=== PATIENT | male | born 1950 | race Two or more races ===

== ENCOUNTER 2019-08-26 16:18 | Emergency (ER) | payer OTHER ==
[~2019-08-26] VITALS: Ht 162.6 cm; Wt 93.9 kg
[2019-08-26] MEDS ORDERED: SYNTHROID88 MCG (16:51)
[2019-08-26] MEDS ORDERED: IRBESARTAN75 MG (16:51)
== END 2019-08-26 22:17 | disposition home or self-care (01) ==
LOC: ER 16:18
DX: K80.80 Other cholelithiasis without obstruction (principal); K57.30 Diverticulosis of large intestine without perforation or abscess without bleeding; N28.1 Cyst of kidney, acquired; R19.7 Diarrhea, unspecified

== ENCOUNTER 2019-08-29 13:23 | Inpatient (IN) | payer OTHER ==
[~2019-08-29] VITALS: Ht 162.6 cm; Wt 93.4 kg
[~2019-08-29 13:23] MED LIST: IRBESARTAN75 MG; SYNTHROID88 MCG
[2019-08-29] MEDS ORDERED: CHLORTHALIDONE25 MG (14:37)
[2019-09-03] MEDS ORDERED: LEVAQUIN500 MG PO (15:41)
[2019-09-03] MEDS ORDERED: SURFAK240 M1 PO (15:41)
== END 2019-09-03 17:48 | disposition home or self-care (01) | DRG 418 ==
LOC: ER 13:23 → SEC-K 19:30 → SURG 19:30
PROVIDERS: ADMIT Surgery
PROC: 0DNU4ZZ Release Omentum, Percutaneous Endoscopic Approach (ICD-10-PCS; 2019-08-30)
PROC: 0FT44ZZ Resection of Gallbladder, Percutaneous Endoscopic Approach (ICD-10-PCS; principal; 2019-08-30 17:45)
PROC: 0WQF4ZZ Repair Abdominal Wall, Percutaneous Endoscopic Approach (ICD-10-PCS; 2019-08-30 17:45)
PROC: 3E0F7GC Introduction of Other Therapeutic Substance into Respiratory Tract, Via Natural or Artificial Opening (ICD-10-PCS; 2019-08-31)
PROC: 4A033R1 Measurement of Arterial Saturation, Peripheral, Percutaneous Approach (ICD-10-PCS; 2019-08-31)
DX: K80.00 Calculus of gallbladder with acute cholecystitis without obstruction (principal); J95.89 Other postprocedural complications and disorders of respiratory system, not elsewhere classified; J98.11 Atelectasis; I10 Essential (primary) hypertension; E03.8 Other specified hypothyroidism; K57.30 Diverticulosis of large intestine without perforation or abscess without bleeding; K42.9 Umbilical hernia without obstruction or gangrene; K66.0 Peritoneal adhesions (postprocedural) (postinfection); R09.02 Hypoxemia